=== PATIENT | male | born 1960 | race Caucasian/White ===

== ENCOUNTER 2016-11-19 18:01 | Emergency (ER) | payer BC ==
[2016-11-19 18:22] VITALS: BP 112/77
[2016-11-19] MEDS ORDERED: Ketorolac 60 MG/2 ML SDV IM ONE (18:53)
[2016-11-19] MEDS ORDERED: Cyclobenzaprine 10 MG Tab PO ONE (18:53)
--- NOTE | 2016-11-19 19:06 | EDM.PDOC ---
ED HPI LOWER BACK PAIN/INJURY - General Chief Complaint: Back Pain or Injury Stated Complaint: FELL [id number] HURT BACK Time Seen by Provider: 11/19/16 19:02 Source: Reports: Patient History Limitations: Reports: No limitations - History of Present Illness INITIAL COMMENTS - FREE TEXT/NARRATIVE: pt had acute pain in the lower back and down the rt leg. He has no tingling in his foot or lower leg. He slipped on the ice and he landed on the rt hip and lower back area. Timing/Duration: Reports: Day(s):, Other (pt is rating his pain at a 9. ) Location: Reports: radiating pain Place: home - Related Data Allergies/ADRs: Allergies Allergy/AdvReac Type Severity Reaction Status Date / Time No Known Allergies Allergy Verified 09/17/15 02:28 Home Meds: Home Meds Clopidogrel Bisulfate [Plavix] 75 mg PO DAILY 09/17/15 [History] Aspirin [Lo-Dose Aspirin EC] 81 mg PO DAILY 11/19/16 [History] Carvedilol [Coreg] 6.25 mg PO DAILY 11/19/16 [History] Levothyroxine 25 mcg PO DAILY 11/19/16 [History] atorvaSTATin [Lipitor] 40 mg PO DAILY 11/19/16 [History] Past Medical History Cardiovascular History: Reports: Arrhythmia, CAD, High cholesterol, Hypertension , [place], Prior cardiac arrest Neurological History: Reports: Concussion, Head trauma - Infectious Disease History Infectious Disease History: Reports: Chicken pox - Past Surgical History HEENT Surgical History: Reports: Cataract surgery Cardiovascular Surgical History: Reports: Coronary artery stent Social & Family History - Tobacco Use Smoking Status *Q: Former Smoker Used Tobacco, but Quit: Yes Month Tobacco Last Used: 2010 - Caffeine Use Caffeine Use: Reports: Coffee - Alcohol Use Days Per Week of Alcohol Use: 7 Number of Drinks Per Day: 2 Total Drinks Per Week: 14 - Recreational Drug Use Recreational Drug Use: No ED ROS GENERAL - Review of Systems Review Of Systems: See Below Constitutional: Reports: no symptoms HEENT: Reports: No symptoms Respiratory: Reports: no symptoms Cardiovascular: Reports: No symptoms Endocrine: Reports: no symptoms GI/Abdominal: Reports: No symptoms : Reports: no symptoms Musculoskeletal: Reports: back pain Skin: Reports: no symptoms ED EXAM,LOWER BACK PAIN/INJURY - Physical Exam Exam: See Below Text/Narrative:: pt had pin in the lower back on the rt after a fall 2 weeks ago. Exam Limited By: No limitations General Appearance: alert, anxious Ears: normal TMs Nose: normal inspection Throat/Mouth: Normal inspection Head: atraumatic Neck: normal inspection Back Exam: other (pt is tender on the rt side and when his rt leg is stretched it is more uncomfortable. He has no bruising or swelling over the area. ) Extremities: normal inspection, other ( rt straight leg raising is uncomfortable. ) Neurological: alert Course - Vital Signs Last Recorded V/S: Last Vital Signs Temp 36.7 C 11/19/16 18:28 Pulse 65 11/19/16 18:28 Resp 14 11/19/16 18:28 BP 112/77 11/19/16 18:28 Pulse Ox 96 11/19/16 18:28 - Orders/Labs/Meds Orders: Active Orders 24 hr Category Date Time Status Lumbar Spine Min 4V [CR] Stat Exams 11/19/16 19:00 Taken Pelvis 1V or 2V [CR] Stat Exams 11/19/16 19:03 Taken Meds: Medications Discontinued Medications Generic Name Dose Route Start Last Admin Trade Name Freq PRN Reason Stop Dose Admin Cyclobenzaprine HCl 10 mg 11/19/16 18:53 11/19/16 19:06 Flexeril PO 11/19/16 18:54 10 mg ONETIME ONE Administration Ketorolac Tromethamine 60 mg 11/19/16 18:53 11/19/16 19:05 Toradol IM 11/19/16 18:54 60 mg ONETIME ONE Administration - Re-Assessments/Exams Free Text/Narrative Re-Assessment/Exam: 11/19/16 20:10 lumbar spine series was obtained which showed a marked narrowing at the l4-l5 area. This disc disease may have flared with the fall. Departure - Departure Time of Disposition: 20:00 Disposition: Home, Self-Care 01 Condition: fair Clinical Impression: Degenerative disc disease, lumbar, Contusion of lower back and pelvis, initial encounter Referrals: Charanjit Corbin, [employer] [Primary Care Provider] - Forms: ED Department Discharge Care Plan Goals: moist warm packs to the rt lower back, rest, flexeril 10 mg 1/2 tab q am and qnoon and 1 tab hs. alieve twice daily, percocet 5/325 q6h prn for pain, appt with Charanjit H[place]-- pt may need an MRI for further evaluation - My Orders Last 24 Hours: My Active Orders 11/19/16 19:00 Lumbar Spine Min 4V [CR] Stat 11/19/16 19:03 Pelvis 1V or 2V [CR] Stat - Assessment/Plan Last 24 Hours: My Active Orders 11/19/16 19:00 Lumbar Spine Min 4V [CR] Stat 11/19/16 19:03 Pelvis 1V or 2V [CR] Stat
--- NOTE | 2016-11-20 08:32 | CR ---
Pelvis. Findings: No fracture or dislocation. Mild degenerative changes both hips.
--- NOTE | 2016-11-20 08:34 | CR ---
5 lumbar vertebral bodies. Advanced disc height loss L4-5. Endplate degenerative change L4-5. Anteri or osteophytosis. Mild anterolisthesis L4-5. No acute compression fracture.
== END 2016-11-19 20:10 | disposition home or self-care (01) ==
LOC: JP.ED 18:01
DX: S30.0XXA Contusion of lower back and pelvis, initial encounter (principal); M51.36 Other intervertebral disc degeneration, lumbar region; Z79.82 Long term (current) use of aspirin; Z79.899 Other long term (current) drug therapy; Z95.5 Presence of coronary angioplasty implant and graft; W00.0XXA Fall on same level due to ice and snow, initial encounter
CPT/HCPCS: 72110; 72170; 96372; 99284; A9270; J1885

== ENCOUNTER 2018-05-25 11:40 | Emergency (ER) | payer BC ==
--- NOTE | 2018-05-25 12:26 | EDM.PDOC ---
ED HPI GENERAL MEDICAL PROBLEM - General Chief Complaint: Eye Problems Stated Complaint: DIZZY, VISION Time Seen by Provider: 05/25/18 12:15 Source of Information: Reports: Patient History Limitations: Reports: No Limitations - History of Present Illness INITIAL COMMENTS - FREE TEXT/NARRATIVE: Brady is a 58 year old male, hx of OR, on Plavix, who presents to the ED today with c/o sudden onset of near syncope followed by left sided visual deficit that lasted approximately 30 minutes. Patient arrives here symptom free for the last 30 minutes. Patient denies any preceeding headache, chest pain, sob. He denies any hx of head trauma or recent illness. Patient denies any hx of this in the past. Blood pressure on arrival is 110/60. Onset: Today, Sudden - Related Data Allergies Allergy/AdvReac Type Severity Reaction Status Date / Time No Known Allergies Allergy Verified 05/25/18 12:08 Home Meds: Home Meds Clopidogrel Bisulfate [Plavix] 75 mg PO DAILY 09/17/15 [History] Aspirin [Lo-Dose Aspirin EC] 81 mg PO DAILY 11/19/16 [History] Carvedilol [Coreg] 6.25 mg PO DAILY 11/19/16 [History] Levothyroxine 25 mcg PO DAILY 11/19/16 [History] atorvaSTATin [Lipitor] 40 mg PO DAILY 11/19/16 [History] Past Medical History HEENT History: Reports: Cataract Cardiovascular History: Reports: Arrhythmia, CAD, High Cholesterol, Hypertension , [place], Prior Cardiac Arrest Neurological History: Reports: Concussion, Head Trauma - Infectious Disease History Infectious Disease History: Reports: Chicken Pox - Past Surgical History HEENT Surgical History: Reports: Cataract Surgery Cardiovascular Surgical History: Reports: Coronary Artery Stent, Percutaneous Transluminal Angioplasty Social & Family History - Tobacco Use Smoking Status *Q: Never Smoker - Caffeine Use Caffeine Use: Reports: Coffee - Recreational Drug Use Recreational Drug Use: No ED ROS GENERAL - Review of Systems Review Of Systems: ROS reveals no pertinent complaints other than HPI. ED EXAM GENERAL W FULL EYE - Physical Exam Exam: See Below Exam Limited By: No Limitations General Appearance: Alert, WD/WN, No Apparent Distress Eye Exam: Bilateral Eye: EOMI, PERRL Eyelids: Bilateral: Normal Appearance Extraocular Movements: Bilateral: Intact Pupils: Normal Accommodation Pupillary Size: Bilateral: 2 mm Pupillary Reaction: Bilateral: Brisk Ears: Normal External Exam, Normal Canal, Normal TMs Nose: Normal Inspection Throat/Mouth: Normal Inspection Head: Atraumatic Neck: Normal Inspection, Supple, Non-Tender. No: Carotid Bruit Respiratory/Chest: No Respiratory Distress, Lungs Clear, Normal Breath Sounds Cardiovascular: Normal Peripheral Pulses, Regular Rate, Rhythm, Bradycardia GI/Abdominal: Normal Bowel Sounds, Soft, Non-Tender Extremities: Normal Inspection Neurological: Alert, Oriented, CN II-XII Intact, Normal Cognition, Normal Gait, Normal Reflexes, No Motor/Sensory Deficits Psychiatric: Normal Affect, Normal Mood Skin Exam: Warm, Dry, Intact Lymphatic: No Adenopathy Course - Vital Signs Last Recorded V/S: Last Vital Signs Temp 36.3 C 05/25/18 11:57 Pulse 57 L 05/25/18 11:57 Resp 16 05/25/18 11:57 BP Pulse Ox 99 05/25/18 11:57 Brady is a 58 year old male, hx of OR with stent placement, presents to the ED today with a brief episode of near syncope and left sided visual deficits. Patient on arrival here is symptoms free. Please refer to HPI and focused exam. Patient arrives here mildly bradycardic but not hypertensive and otherwise hemodynamically stable. Patient has no neuro/focal findings on exam and NIH is 0. CT scan obtained to rule out an acute intracranial process and is negative. Blood work obtained, white count is normal, hgb stable at 12. CMP returns with mildly elevated creatinine of 1.4, GFR of 52. AST is mildly elevated at 38. CRP is elevated at 0.69. Based on patient's symptoms having resolved and having not returned during his ED stay, this may have been a TIA. I do not feel that patient acutely needs an MRI today as again he is symptom free. Patient is on Plavix which makes him lower risk for infarct. This may have been an atypical migraine presentation although patient has no hx of. He may have had a vasovagal response which I would not expect to cause any visual deficits. I feel his exam and test results are reassuring here today. I did inform patient of his test results. I want him to follow up in clinic later this week for re-evaluation. His kidney function can be re-evaluated at that time as well. He can discuss need for outpatient MRI. I did inform patient to stay well hydrated. If his symptoms return or other worsening symptoms/concerns arise, I want him to return here. Patient is agreeable to plan of care and discharged in stable condition. - Orders/Labs/Meds Orders: Active Orders 24 hr Category Date Time Status Head wo Cont [CT] Stat Exams 05/25/18 12:21 Taken Labs: Laboratory Tests 05/25/18 05/25/18 05/25/18 Range/Units 12:32 12:32 12:32 WBC 6.2 (4.5-11.0) K/uL RBC 3.84 L (4.30-5.90) M/uL Hgb 12.0 (12.0-15.0) g/dL Hct 39.2 L (40.0-54.0) % MCV 102 H (80-98) fL MCH 31 (27-31) pg MCHC 31 L (32-36) % Plt Count 249 (150-400) K/uL Neut % (Auto) 63 (36-66) % Lymph % (Auto) 28 (24-44) % [place] % (Auto) 5 (2-6) % Eos % (Auto) 4 (2-4) % Baso % (Auto) 1 (0-1) % PT 11.7 (9.5-12.0) sec INR 1.07 (0.80-1.20) Sodium 143 (140-148) mmol/L Potassium 4.7 (3.6-5.2) mmol/L Chloride 108 (100-108) mmol/L Carbon Dioxide 29 (21-32) mmol/L Anion Gap 6.2 (5.0-14.0) mmol/L BUN 24 H (7-18) mg/dL Creatinine 1.4 H (0.8-1.3) mg/dL Est Cr Clr Drug Dosing 63.90 mL/min Estimated GFR (MDRD) 52 L (>60) Glucose 88 (74-106) mg/dL Calcium 9.0 (8.5-10.1) mg/dL Total Bilirubin 1.0 D (0.2-1.0) mg/dL AST 38 H (15-37) U/L ALT 42 (12-78) U/L Alkaline Phosphatase 96 (46-116) U/L C-Reactive Protein (0.0-0.3) mg/dL Total Protein 7.5 (6.4-8.2) g/dL Albumin 3.5 (3.4-5.0) g/dL Globulin 4.0 H (2.3-3.5) g/dL Albumin/Globulin Ratio 0.9 L (1.2-2.2) 05/25/18 Range/Units 12:32 WBC (4.5-11.0) K/uL RBC (4.30-5.90) M/uL Hgb (12.0-15.0) g/dL Hct (40.0-54.0) % MCV (80-98) fL MCH (27-31) pg MCHC (32-36) % Plt Count (150-400) K/uL Neut % (Auto) (36-66) % Lymph % (Auto) (24-44) % [place] % (Auto) (2-6) % Eos % (Auto) (2-4) % Baso % (Auto) (0-1) % PT (9.5-12.0) sec INR (0.80-1.20) Sodium (140-148) mmol/L Potassium (3.6-5.2) mmol/L Chloride (100-108) mmol/L Carbon Dioxide (21-32) mmol/L Anion Gap (5.0-14.0) mmol/L BUN (7-18) mg/dL Creatinine (0.8-1.3) mg/dL Est Cr Clr Drug Dosing mL/min Estimated GFR (MDRD) (>60) Glucose (74-106) mg/dL Calcium (8.5-10.1) mg/dL Total Bilirubin (0.2-1.0) mg/dL AST (15-37) U/L ALT (12-78) U/L Alkaline Phosphatase (46-116) U/L C-Reactive Protein 0.69 H (0.0-0.3) mg/dL Total Protein (6.4-8.2) g/dL Albumin (3.4-5.0) g/dL Globulin (2.3-3.5) g/dL Albumin/Globulin Ratio (1.2-2.2) Departure - Departure Time of Disposition: 14:00 Disposition: Home, Self-Care 01 Condition: Good Clinical Impression: Visual disturbance, Near syncope - Discharge Information *PRESCRIPTION DRUG MONITORING PROGRAM REVIEWED*: No *COPY OF PRESCRIPTION DRUG MONITORING REPORT IN PATIENT SOWMYA: No Instructions: Visual Disturbances, Syncope, [id number], Transient Ischemic Attack, [id number] Referrals: Charanjit Corbin NP [Primary Care Provider] - Forms: ED Department Discharge Additional Instructions: Edward, Your CT scan looks ok. Your blood work shows a mildly elevated creatinine (kidney function) but otherwise looks ok. You may have had a TIA, I have given you paperwork with regard to what this is, but can put you at risk of having a stroke if symptoms return. I would like you to see your primary care provider later this week for follow- up. I would like your creatinine (kidney function) test rechecked at that time. You can also discuss an outpatient MRI of your head given your symptoms today. I want you to make sure you are staying well hydrated. If any of your symptoms return I want you to return to the Emergency Department. - My Orders Last 24 Hours: My Active Orders 05/25/18 12:21 Head wo Cont [CT] Stat - Assessment/Plan Last 24 Hours: My Active Orders 05/25/18 12:21 Head wo Cont [CT] Stat
[2018-05-25 13:42] VITALS: BP 118/61
== END 2018-05-25 13:56 | disposition home or self-care (01) ==
LOC: JP.ED 11:40
DX: R55 Syncope and collapse (principal); H53.9 Unspecified visual disturbance; I10 Essential (primary) hypertension; E78.00 Pure hypercholesterolemia, unspecified; I25.2 Old myocardial infarction; Z79.82 Long term (current) use of aspirin; Z79.899 Other long term (current) drug therapy
CPT/HCPCS: 36415; 70450; 80053; 85025; 85610; 86140; 99284-25

== ENCOUNTER 2019-06-18 22:11 | Emergency (ER) | payer BC ==
[2019-06-18] MEDS ORDERED: Aspirin 81 MG Tab.Chew PO ONE (22:28)
[2019-06-18] MEDS ORDERED: Nitroglycerin 0.4 MG Tab.SL SL ONE (22:28)
--- NOTE | 2019-06-18 22:32 | EDM.PDOC ---
ED HPI GENERAL MEDICAL PROBLEM - General Chief Complaint: Chest Pain Stated Complaint: CHEST PAIN, PAIN UNDER ARMS Time Seen by Provider: 06/18/19 22:15 Source of Information: Reports: Patient, Family History Limitations: Reports: No Limitations - History of Present Illness INITIAL COMMENTS - FREE TEXT/NARRATIVE: 51-year-old male with a previous known history of coronary artery disease and [place] , presents with 2-1/2 hours of chest pain and bilateral arm and shoulder discomfort. It started while watching TV. It's improved, he has just dull chest pain now on the arm pain is gone. He is asking for an evaluation. Denies any shortness of breath or diaphoresis, no nausea or vomiting. He is scheduled for his yearly cardiology evaluation in August of this year. Onset: Sudden Quality: Reports: Ache, Dull, Pressure Associated Symptoms: Reports: No Other Symptoms Anterior Chest Pain Score (Numeric/FACES): 3 - Related Data Allergies Allergy/AdvReac Type Severity Reaction Status Date / Time No Known Allergies Allergy Verified 06/18/19 22:16 Home Meds: Home Meds Clopidogrel Bisulfate [Plavix] 75 mg PO DAILY 09/17/15 [History] Aspirin [Lo-Dose Aspirin EC] 81 mg PO DAILY 11/19/16 [History] Carvedilol [Coreg] 3.125 mg PO BID 11/19/16 [History] Levothyroxine 25 mcg PO DAILY 11/19/16 [History] atorvaSTATin [Lipitor] 40 mg PO DAILY 11/19/16 [History] Folic Acid 1 mg PO DAILY 06/18/19 [History] Lisinopril 1 tab PO DAILY 06/18/19 [History] Past Medical History HEENT History: Reports: Cataract Cardiovascular History: Reports: Arrhythmia, CAD, High Cholesterol, Hypertension , [place], Prior Cardiac Arrest Neurological History: Reports: Concussion, Head Trauma - Infectious Disease History Infectious Disease History: Reports: Chicken Pox - Past Surgical History HEENT Surgical History: Reports: Cataract Surgery Cardiovascular Surgical History: Reports: Coronary Artery Stent, Percutaneous Transluminal Angioplasty Social & Family History - Caffeine Use Caffeine Use: Reports: Coffee ED ROS GENERAL - Review of Systems Review Of Systems: See Below Constitutional: Denies: Fever, Chills HEENT: Reports: No Symptoms Respiratory: Denies: Shortness of Breath, Cough Cardiovascular: Reports: Chest Pain. Denies: Lightheadedness, Palpitations GI/Abdominal: Denies: Abdominal Pain, Nausea, Vomiting : Reports: No Symptoms Skin: Reports: No Symptoms Neurological: Reports: No Symptoms. Denies: Headache ED EXAM, GENERAL - Physical Exam Exam: See Below Exam Limited By: No Limitations General Appearance: Alert, No Apparent Distress Head: Atraumatic Respiratory/Chest: No Respiratory Distress, Lungs Clear Cardiovascular: Regular Rate, Rhythm GI/Abdominal: Soft, Non-Tender Extremities: Normal Inspection. No: Pedal Edema Neurological: Alert, Oriented EKG INTERPRETATION Rhythm: NSR Comparison: Change From Previous EKG (Slight ST elevation in the anterior leads is consistent with 3 year-old EKG however slightly more pronounced) Course - Vital Signs Last Recorded V/S: Last Vital Signs Temp 95.9 F 06/18/19 23:33 Pulse 54 L 06/18/19 23:33 Resp 14 06/18/19 23:33 BP 114/80 06/18/19 23:33 Pulse Ox 97 06/18/19 23:33 - Orders/Labs/Meds Orders: Active Orders 24 hr Category Date Time Status EKG Documentation Completion [RC] ASDIRECTED Care 06/18/19 22:29 Active EKG 12 Lead [EK] Routine Ther 06/18/19 22:28 Ordered Labs: Laboratory Tests 06/18/19 06/18/19 Range/Units 22:38 22:38 WBC 6.2 (4.5-11.0) K/uL RBC 3.46 L (4.30-5.90) M/uL Hgb 11.5 L (12.0-15.0) g/dL Hct 37.2 L (40.0-54.0) % MCV 108 H (80-98) fL MCH 33 H (27-31) pg MCHC 31 L (32-36) % Plt Count 186 (150-400) K/uL Neut % (Auto) 50 (36-66) % Lymph % (Auto) 38 (24-44) % [place] % (Auto) 7 H (2-6) % Eos % (Auto) 4 (2-4) % Baso % (Auto) 1 (0-1) % Sodium 146 (140-148) mmol/L Potassium 3.8 (3.6-5.2) mmol/L Chloride 109 H (100-108) mmol/L Carbon Dioxide 27 (21-32) mmol/L Anion Gap 13.8 (5.0-14.0) mmol/L BUN 26 H (7-18) mg/dL Creatinine 1.4 H (0.8-1.3) mg/dL Est Cr Clr Drug Dosing 63.13 mL/min Estimated GFR (MDRD) 52 L (>60) Glucose 99 (74-106) mg/dL Calcium 8.9 (8.5-10.1) mg/dL Total Bilirubin 0.4 D (0.2-1.0) mg/dL AST 32 (15-37) U/L ALT 35 (12-78) U/L Alkaline Phosphatase 70 (46-116) U/L Troponin I 0.603 H* (0.000-0.056) ng/mL Total Protein 6.6 (6.4-8.2) g/dL Albumin 3.4 (3.4-5.0) g/dL Globulin 3.2 (2.3-3.5) g/dL Albumin/Globulin Ratio 1.1 L (1.2-2.2) Meds: Medications Discontinued Medications Generic Name Dose Route Start Last Admin Trade Name Freq PRN Reason Stop Dose Admin Aspirin 324 mg 06/18/19 22:28 06/18/19 22:35 Aspirin PO 06/18/19 22:29 324 mg ONETIME ONE Administration Heparin Sodium (Porcine) 5,000 units 06/18/19 23:11 06/18/19 23:21 Heparin Sodium IVPUSH 06/18/19 23:12 5,000 units ONETIME ONE Administration Heparin Sodium/Dextrose 25,000 units in 500 mls @ 20 mls/hr 06/18/19 23:15 23:27 Heparin 25,000 Units In D5w 500 Ml IV 1,000 units/hr TITRATE ASHLEY 20 mls/hr Administration Protocol 1,000 UNITS/HR Nitroglycerin 0.4 mg 06/18/19 22:28 06/18/19 22:37 Nitrostat SL 06/18/19 22:29 0.4 mg ONETIME ONE Administration - Re-Assessments/Exams Free Text/Narrative Re-Assessment/Exam: 06/18/19 22:32 EKG was done on arrival which showed mild ST elevation in the anterior leads V1 through V3, however comparing an EKG 2016 shows similar findings although not as pronounced. He was given 324 mg of chewable aspirin, one sublingual nitroglycerin 0.4 mg and CBC CMP and troponin were obtained. 06/18/19 23:21 Troponin returned elevated at 0.60. Pain had not returned after resolving after the sublingual nitroglycerin. An IV was started, the patient was given 5000 units of heparin bolus and started on a heparin drip. Dr. Reagan, [facility] accepted the patient for transfer. Departure - Departure Time of Disposition: 23:53 Disposition: DC/Tfer to Other Clinical Impression: STEMI (ST elevation myocardial infarction) Qualifiers: Involved coronary artery: unspecified coronary artery Qualified Code(s): I21.3 - ST elevation (STEMI) myocardial infarction of unspecified site - Discharge Information Referrals: Charanjit Corbin NP [Primary Care Provider] - Forms: ED Department Discharge Care Plan Goals: Patient will be transferred to [facility] in [place] for further evaluation by cardiology, likely coronary angiography. - My Orders Last 24 Hours: My Active Orders 06/18/19 22:28 EKG 12 Lead [EK] Routine 06/18/19 22:29 EKG Documentation Completion [RC] ASDIRECTED - Assessment/Plan Last 24 Hours: My Active Orders 06/18/19 22:28 EKG 12 Lead [EK] Routine 06/18/19 22:29 EKG Documentation Completion [RC] ASDIRECTED
[2019-06-18 22:49] VITALS: PULSE 54
[2019-06-18] MEDS ORDERED: Heparin Sodium 5,000 Units/ML Vial IVPUSH ONE (23:11)
[2019-06-18] MEDS ORDERED: Heparin Sodium/D5W 25,000 UNITS/500 ML BAG IV SCH (23:15)
[2019-06-18 23:34] VITALS: BP 114/80
== END 2019-06-18 23:52 | disposition other institution (70) ==
LOC: JP.ED 22:11
DX: I21.3 ST elevation (STEMI) myocardial infarction of unspecified site (principal); I25.10 Atherosclerotic heart disease of native coronary artery without angina pectoris; E78.00 Pure hypercholesterolemia, unspecified; I10 Essential (primary) hypertension; H26.9 Unspecified cataract; Z79.82 Long term (current) use of aspirin; Z79.02 Long term (current) use of antithrombotics/antiplatelets; Z79.899 Other long term (current) drug therapy; Z95.5 Presence of coronary angioplasty implant and graft
CPT/HCPCS: 36415; 80053; 84484; 85025; 93005; 96365; 96375; 99285; A9270; J1644

== ENCOUNTER 2020-03-10 07:37 | Emergency (ER) | payer BC ==
[2020-03-10] MEDS ORDERED: Morphine 4 MG/ML Syringe IVPUSH ONE (07:51)
[2020-03-10] MEDS ORDERED: Nitroglycerin 0.4 MG Tab.SL SL PRN (07:51)
[2020-03-10] MEDS: Metoprolol Tartrate 5 MG/5 ML SDV IVPUSH PRN ×2 (07:56→08:21)
[2020-03-10] MEDS ORDERED: Metoprolol Tartrate 5 MG/5 ML SDV IVPUSH ONE (08:18)
--- NOTE | 2020-03-10 08:18 | EDM.PDOC ---
ED HPI GENERAL MEDICAL PROBLEM - General Chief Complaint: Cardiovascular Problem Stated Complaint: [facility] Time Seen by Provider: 03/10/20 07:45 Source of Information: Reports: Patient, EMS History Limitations: Reports: No Limitations - History of Present Illness INITIAL COMMENTS - FREE TEXT/NARRATIVE: This is a 59-year-old male with history of prior STEMI, stent placement, and ischemic cardiomyopathy who presents via EMS from home with chest pain. He reports that his pain started approximately 4 hours prior to arrival in the ED at 3 AM. It woke him from sleep. He tried several of his home nitroglycerin tabs, these offered minimal relief from the pain. The pain is currently 6 out of 10, substernal, described as a pressure. He does not endorse any associated dyspnea. He is not sure if the pain feels similar to his prior [place]. He was found by EMS to be tachycardic in the 160s and 170s, this did improve with vagal maneuvers transiently. Upon arrival in the emergency room he is found to be in rapid A. fib, he does not believe that he has any history of this. He has been taking his aspirin and Plavix as well as his Coreg. He does clinically seem to be intoxicated, and I am not entirely certain of the accuracy of his history, although he does deny recent drug or alcohol use. Chest Pain Score (Numeric/FACES): 3 - Related Data Allergies Allergy/AdvReac Type Severity Reaction Status Date / Time No Known Allergies Allergy Verified 03/10/20 07:47 Home Meds: Home Meds Clopidogrel Bisulfate [Plavix] 75 mg PO DAILY 09/17/15 [History] Aspirin [Lo-Dose Aspirin EC] 81 mg PO DAILY 11/19/16 [History] Levothyroxine 25 mcg PO DAILY 11/19/16 [History] atorvaSTATin [Lipitor] 40 mg PO DAILY 11/19/16 [History] carvediloL [Coreg] 3.125 mg PO BID 11/19/16 [History] Folic Acid 1 mg PO DAILY 06/18/19 [History] Lisinopril 1 tab PO DAILY 06/18/19 [History] Cyanocobalamin (Vitamin B-12) [Vitamin B-12] 10,000 mcg PO DAILY 03/10/20 [History] Nitroglycerin 0.4 mg SL ASDIRECTED PRN 03/10/20 [History] Past Medical History HEENT History: Reports: Cataract Cardiovascular History: Reports: Afib, Arrhythmia, CAD, High Cholesterol, Hypertension, [place], Prior Cardiac Arrest Musculoskeletal History: Reports: Arthritis Neurological History: Reports: Concussion, Head Trauma Endocrine/Metabolic History: Reports: Hypothyroidism - Infectious Disease History Infectious Disease History: Reports: Chicken Pox - Past Surgical History HEENT Surgical History: Reports: Cataract Surgery Cardiovascular Surgical History: Reports: Coronary Artery Stent, Percutaneous Transluminal Angioplasty Social & Family History - Tobacco Use Tobacco Use Comment: current some day smoker - Caffeine Use Caffeine Use: Reports: Coffee - Recreational Drug Use Recreational Drug Use: No ED ROS GENERAL - Review of Systems Review Of Systems: See Below Constitutional: Reports: No Symptoms HEENT: Reports: No Symptoms Respiratory: Reports: No Symptoms Cardiovascular: Reports: Chest Pain Endocrine: Reports: No Symptoms GI/Abdominal: Reports: No Symptoms : Reports: No Symptoms Musculoskeletal: Reports: No Symptoms Skin: Reports: No Symptoms Neurological: Reports: No Symptoms Psychiatric: Reports: No Symptoms Hematologic/Lymphatic: Reports: No Symptoms Immunologic: Reports: No Symptoms ED EXAM, GENERAL - Physical Exam Exam: See Below Exam Limited By: No Limitations General Appearance: Alert, Mild Distress Nose: Normal Inspection Throat/Mouth: Normal Inspection Head: Atraumatic, Normocephalic Neck: Normal Inspection Respiratory/Chest: Lungs Clear Cardiovascular: No Murmur, Tachycardia, Irregularly Irregular GI/Abdominal: Soft, Non-Tender Back Exam: Normal Inspection Extremities: Normal Inspection, No Pedal Edema Neurological: Alert, Oriented Psychiatric: Normal Affect, Normal Mood Skin Exam: Warm, Dry EKG INTERPRETATION Rhythm: A-Fib ST-T: Other (unchanged from prior) Comparison: No Change EKG Interpretation Comments: Rapid a-fib. Some inferior ST segment changes but similar to 2019. Stable on repeat tracings. Course - Vital Signs Last Recorded V/S: Last Vital Signs Temp 36.8 C 03/10/20 07:39 Pulse 113 H 03/10/20 08:51 Resp 22 H 03/10/20 08:51 BP 104/72 03/10/20 08:51 Pulse Ox 95 03/10/20 08:51 - Orders/Labs/Meds Orders: Active Orders 24 hr Category Date Time Status CXR [Chest 1V Frontal] [CR] Stat Exams 03/10/20 07:50 Taken Heparin Sodium/D5W [Heparin 25,000 Units in D5W 500 ML] Med 03/10/20 09:00 Active 25,000 units in 500 ml IV TITRATE Metoprolol Tartrate [Lopressor] Med 03/10/20 07:52 Active 5 mg IVPUSH Q4H PRN Nitroglycerin [Nitrostat] Med 03/10/20 07:51 Active 0.4 mg SL Q5M PRN Medication Orders Heparin Sodium/Dextrose (Heparin 25,000 Units In D5w 500 Ml) 25,000 units in 500 mls @ 20.357 mls/hr IV TITRATE ASHLEY; Protocol Metoprolol Tartrate (Lopressor) 5 mg IVPUSH Q4H PRN PRN Reason: Tachycardia Last Admin: 03/10/20 08:21 Dose: 2.5 mg Documented by: Admin: 03/10/20 07:56 Dose: 5 mg Documented by: PREILOR Nitroglycerin (Nitrostat) 0.4 mg SL Q5M PRN PRN Reason: Chest Pain Last Admin: 03/10/20 07:58 Dose: 0.4 mg Documented by: PREILOR Labs: Laboratory Tests 03/10/20 03/10/20 03/10/20 Range/Units 08:09 08:09 08:09 WBC 11.1 H (4.5-11.0) K/uL RBC 3.96 L (4.30-5.90) M/uL Hgb 12.8 (12.0-15.0) g/dL Hct 41.6 (40.0-54.0) % MCV 105 H (80-98) fL MCH 32 H (27-31) pg MCHC 31 L (32-36) % Plt Count 292 (150-400) K/uL Sodium 145 (140-148) mmol/L Potassium 4.6 (3.6-5.2) mmol/L Chloride 109 H (100-108) mmol/L Carbon Dioxide 23 (21-32) mmol/L Anion Gap 17.6 H (5.0-14.0) mmol/L BUN 25 H (7-18) mg/dL Creatinine 1.5 H (0.8-1.3) mg/dL Est Cr Clr Drug Dosing 60.66 mL/min Estimated GFR (MDRD) 48 L (>60) Glucose 95 (74-106) mg/dL Calcium 8.7 (8.5-10.1) mg/dL Magnesium 2.3 (1.8-2.4) mg/dL Total Bilirubin 1.5 H D (0.2-1.0) mg/dL AST 85 H D (15-37) U/L ALT 155 H (12-78) U/L Alkaline Phosphatase 170 H D (46-116) U/L Troponin I 0.587 H* (0.000-0.056) ng/mL Total Protein 7.0 (6.4-8.2) g/dL Albumin 2.8 L (3.4-5.0) g/dL Globulin 4.2 H (2.3-3.5) g/dL Albumin/Globulin Ratio 0.7 L (1.2-2.2) Urine Opiates Screen (NEGATIVE) Ur Oxycodone Screen (NEGATIVE) Urine Methadone Screen (NEGATIVE) Ur Propoxyphene Screen (NEGATIVE) Ur Barbiturates Screen (NEGATIVE) Ur Tricyclics Screen (NEGATIVE) Ur Phencyclidine Scrn (NEGATIVE) Ur Amphetamine Screen (NEGATIVE) U Methamphetamines Scrn (NEGATIVE) Urine MDMA Screen (NEGATIVE) U Benzodiazepines Scrn (NEGATIVE) U Cocaine Metab Screen (NEGATIVE) U Marijuana (THC) Screen (NEGATIVE) Ethyl Alcohol mg/dL 03/10/20 03/10/20 Range/Units 08:09 08:31 WBC (4.5-11.0) K/uL RBC (4.30-5.90) M/uL Hgb (12.0-15.0) g/dL Hct (40.0-54.0) % MCV (80-98) fL MCH (27-31) pg MCHC (32-36) % Plt Count (150-400) K/uL Sodium (140-148) mmol/L Potassium (3.6-5.2) mmol/L Chloride (100-108) mmol/L Carbon Dioxide (21-32) mmol/L Anion Gap (5.0-14.0) mmol/L BUN (7-18) mg/dL Creatinine (0.8-1.3) mg/dL Est Cr Clr Drug Dosing mL/min Estimated GFR (MDRD) (>60) Glucose (74-106) mg/dL Calcium (8.5-10.1) mg/dL Magnesium (1.8-2.4) mg/dL Total Bilirubin (0.2-1.0) mg/dL AST (15-37) U/L ALT (12-78) U/L Alkaline Phosphatase (46-116) U/L Troponin I (0.000-0.056) ng/mL Total Protein (6.4-8.2) g/dL Albumin (3.4-5.0) g/dL Globulin (2.3-3.5) g/dL Albumin/Globulin Ratio (1.2-2.2) Urine Opiates Screen Positive H (NEGATIVE) Ur Oxycodone Screen Negative (NEGATIVE) Urine Methadone Screen Negative (NEGATIVE) Ur Propoxyphene Screen Negative (NEGATIVE) Ur Barbiturates Screen Negative (NEGATIVE) Ur Tricyclics Screen Negative (NEGATIVE) Ur Phencyclidine Scrn Negative (NEGATIVE) Ur Amphetamine Screen Negative (NEGATIVE) U Methamphetamines Scrn Negative (NEGATIVE) Urine MDMA Screen Negative (NEGATIVE) U Benzodiazepines Scrn Negative (NEGATIVE) U Cocaine Metab Screen Negative (NEGATIVE) U Marijuana (THC) Screen Negative (NEGATIVE) Ethyl Alcohol < 3 mg/dL Meds: Medications Generic Name Dose Route Start Last Admin Trade Name Freq PRN Reason Stop Dose Admin Heparin Sodium/Dextrose 25,000 units in 500 mls @ 20.357 mls/hr 03/10/20 09:00 Heparin 25,000 Units In D5w 500 Ml IV TITRATE ASHLEY Protocol 12 UNITS/KG/HR Metoprolol Tartrate 5 mg 03/10/20 07:52 03/10/20 08:21 Lopressor IVPUSH 2.5 mg Q4H PRN Administration Tachycardia Nitroglycerin 0.4 mg 03/10/20 07:51 03/10/20 07:58 Nitrostat SL 0.4 mg Q5M PRN Administration Chest Pain Discontinued Medications Generic Name Dose Route Start Last Admin Trade Name Freq PRN Reason Stop Dose Admin Metoprolol Tartrate 5 mg 03/10/20 08:18 Lopressor IVPUSH 03/10/20 08:19 ONETIME ONE Morphine Sulfate 4 mg 03/10/20 07:51 03/10/20 08:04 Morphine IVPUSH 03/10/20 07:52 4 mg ONETIME ONE Administration - Re-Assessments/Exams Free Text/Narrative Re-Assessment/Exam: This is a 59-year-old with history of prior STEMI, ischemic cardiomyopathy who presents with concerns of chest pain and found to be in rapid atrial fibrillation. Upon arrival in the ED he had 6/10 chest pain. He was in A. fib with a ventricular rate of 160 and 170. He did look somewhat uncomfortable. He received an aspirin prehospital by EMS. After reviewing a stat EKG upon arrival, we initiated therapy with 5 mg of Lopressor to slow down his rate. This did bring him down into the 120s. Despite rate control he continued to have ongoing chest pain. A dose of nitroglycerin was given without any significant relief. He then received a 4 mg dose of morphine which is brought his chest pain from 6 to a 2. We are obtaining labs including troponin testing. He will also receive an x- ray. I suspect at a minimum he will have rate related troponin elevation, but with his history we will have to assume it is ACS. We are going to give him another small dose of metoprolol to get his rate closer to 100. 03/10/20 08:24 Free Text/Narrative Re-Assessment/Exam: Labs remarkable for elevated troponin at 0.587. Chest x-ray without acute process. Chest pain remains at 2/10. His heart rate now is around 100 after a second dose of metoprolol, blood pressure is decreased but stable around 100 systolic. I am starting him on a heparin infusion for NSTEMI and A. fib. He is being transferred to [facility] for further cares. 03/10/20 09:12 Departure - Departure Time of Disposition: 09:15 Disposition: DC/Tfer to Acute Hospital 02 Reason for Transfer *Q: Other (Cardiology consultation, possible PCI) Clinical Impression: NSTEMI (non-ST elevated myocardial infarction), Atrial fibrillation with RVR, Ischemic cardiomyopathy Referrals: PCP,None [Primary Care Provider] - Forms: ED Department Discharge Critical Care Note - Critical Care Note Total Time (mins): 35 Comments: Critical care time was spent assessing a tachydysrhythmia, assessing for cardiac ischemia, using intravenous agents to control rapid ventricular rate, interpreting serial EKGs, discussing the case with consultants, and initiating anticoagulation. Sepsis Event Note (ED) - Evaluation Sepsis Screening Result: No Definite Risk - Focused Exam Vital Signs: Vital Signs Temp Pulse Pulse Resp BP BP Pulse Ox 03/10/20 08:51 113 H 22 H 104/72 95 03/10/20 08:36 109 H 22 H 99/78 95 03/10/20 08:21 119 H 102 H 22 H 103/78 91/71 93 L 03/10/20 08:07 99 26 H 103/78 93 L 03/10/20 07:58 116/84 03/10/20 07:56 138 H 113/80 03/10/20 07:39 36.8 C 140 H 19 114/89 94 L - My Orders Last 24 Hours: My Active Orders 03/10/20 07:50 CXR [Chest 1V Frontal] [CR] Stat 03/10/20 07:51 Nitroglycerin [Nitrostat] 0.4 mg SL Q5M PRN 03/10/20 07:52 Metoprolol Tartrate [Lopressor] 5 mg IVPUSH Q4H PRN 03/10/20 09:00 Heparin Sodium/D5W [Heparin 25,000 Units in D5W 500 ML] 25,000 units in 500 ml IV TITRATE - Assessment/Plan Last 24 Hours: My Active Orders 03/10/20 07:50 CXR [Chest 1V Frontal] [CR] Stat 03/10/20 07:51 Nitroglycerin [Nitrostat] 0.4 mg SL Q5M PRN 03/10/20 07:52 Metoprolol Tartrate [Lopressor] 5 mg IVPUSH Q4H PRN 03/10/20 09:00 Heparin Sodium/D5W [Heparin 25,000 Units in D5W 500 ML] 25,000 units in 500 ml IV TITRATE
[2020-03-10] MEDS ORDERED: Heparin Sodium/D5W 25,000 UNITS/500 ML BAG IV SCH (09:00)
[2020-03-10 09:05] VITALS: BP 104/72; PULSE 113
--- NOTE | 2020-03-10 09:32 | CR ---
CHEST: Portable 03/10/2020 at 8:18 AM CLINICAL HISTORY:Chest pain COMPARISON:2016 FINDINGS: Heart is sent enlarged. Pulmonary vascular is normal. There is patchy density in the left lower lobe suggesting pneumonic infiltrate. There may be a small left effusion. There are atherosclerotic changes in the aorta. Impression: Left lower lobe pneumonic infiltrate Cardiomegaly.
== END 2020-03-10 09:51 ==
LOC: JP.ED 07:37
DX: I21.4 Non-ST elevation (NSTEMI) myocardial infarction (principal); I48.91 Unspecified atrial fibrillation; I25.5 Ischemic cardiomyopathy; I10 Essential (primary) hypertension; E78.00 Pure hypercholesterolemia, unspecified; I25.10 Atherosclerotic heart disease of native coronary artery without angina pectoris; I25.2 Old myocardial infarction; M19.90 Unspecified osteoarthritis, unspecified site; E03.9 Hypothyroidism, unspecified; F17.200 Nicotine dependence, unspecified, uncomplicated; Z95.5 Presence of coronary angioplasty implant and graft; Z79.82 Long term (current) use of aspirin; Z79.02 Long term (current) use of antithrombotics/antiplatelets; Z79.899 Other long term (current) drug therapy
CPT/HCPCS: 36415; 71045; 80053; 80305; 80307; 83735; 84484; 85027; 93005; 96374; 96375; 96376; 99291; A9270; J1644; J2270; J3490; 93010

== ENCOUNTER 2021-12-29 18:14 | Inpatient (IN) | payer BC ==
[2021-12-29] MEDS ORDERED: Lactated Ringers 1,000 ML IV SCH ×2 (18:45→19:45)
[2021-12-29] MEDS ORDERED: Ondansetron 4 MG/2 ML SDV IVPUSH ONE (18:58)
[2021-12-29] MEDS ORDERED: Cefepime 2 GM in Sodium Chloride 0.9% 50 ML IV ONE (19:38)
[2021-12-29] MEDS ORDERED: Sodium Chloride 0.9% 10 ML Syringe FLUSH PRN (19:39)
[2021-12-29 20:22] LABS: CORONAVIRUS COVID-19 NAA NEGATIVE (NEGATIVE)
[2021-12-29] MEDS ORDERED: Promethazine 6.25 MG in Sodium Chloride 0.9% 50 ML IV PRN (21:13)
[2021-12-29] MEDS ORDERED: Acetaminophen 325 MG Tab PO PRN (21:13)
[2021-12-29] MEDS ORDERED: oxyCODONE 5 MG Tab PO PRN (21:13)
[2021-12-29] MEDS ORDERED: Lactated Ringers 500 ML IV SCH (21:30)
[2021-12-29] MEDS ORDERED: Pantoprazole 40 MG Vial IVPUSH SCH (21:30)
[2021-12-29] MEDS ORDERED: Furosemide 20 MG/2 ML VIAL IVPUSH PRN (21:57)
[2021-12-29] MEDS: Lactated Ringers 1,000 ML IV SCH (22:26)
[2021-12-29] MEDS: metroNIDAZOLE/Normal Saline 500 MG in Premix Bag 1 BAG IV SCH (22:32)
[2021-12-29] MEDS: Promethazine 25 MG Tab PO PRN (22:40)
[2021-12-30] MEDS: metroNIDAZOLE/Normal Saline 500 MG in Premix Bag 1 BAG IV SCH ×3 (05:26→21:04)
[2021-12-30] MEDS: Levothyroxine 25 MCG Tab PO SCH (07:58)
[2021-12-30] MEDS: Lactated Ringers 1,000 ML IV SCH (08:00)
[2021-12-30] MEDS ORDERED: Cefepime 2 GM in Sodium Chloride 0.9% 50 ML IV SCH (08:00)
[2021-12-30] MEDS ORDERED: Levothyroxine 25 MCG Tab PO SCH (09:00)
[2021-12-30] MEDS: Metoprolol Succinate 25 MG Tab.ER PO SCH (09:12)
[2021-12-30] MEDS: atorvaSTATin 20 MG Tab PO SCH (09:12)
[2021-12-30] MEDS: Aspirin 81 MG Tab.EC PO SCH (09:12)
[2021-12-30] MEDS: Apixaban 5 MG Tab PO SCH ×2 (09:14→21:03)
[2021-12-30] MEDS: Cyanocobalamin (Vitamin B12) 1,000 MCG Tab PO SCH (09:14)
[2021-12-30] MEDS: Folic Acid 1 MG Tab PO SCH (09:14)
[2021-12-30] MEDS: Cefepime 2 GM in Sodium Chloride 0.9% 50 ML IV SCH ×2 (09:33→22:46)
[2021-12-30] MEDS: Digoxin 125 MCG Tab PO SCH ×2 (10:29→13:28)
[2021-12-30] MEDS ORDERED: Lactated Ringers 1,000 ML IV SCH (10:30)
[2021-12-30] MEDS ORDERED: Pantoprazole 40 MG Vial IVPUSH SCH (21:00)
[2021-12-31] MEDS: metroNIDAZOLE/Normal Saline 500 MG in Premix Bag 1 BAG IV SCH ×3 (05:08→22:08)
[2021-12-31] MEDS: Levothyroxine 25 MCG Tab PO SCH (07:56)
[2021-12-31] MEDS: Promethazine 25 MG Tab PO PRN (08:27)
[2021-12-31] MEDS: Aspirin 81 MG Tab.EC PO SCH (09:38)
[2021-12-31] MEDS: Apixaban 5 MG Tab PO SCH ×2 (09:38→20:58)
[2021-12-31] MEDS: Folic Acid 1 MG Tab PO SCH (09:38)
[2021-12-31] MEDS: atorvaSTATin 20 MG Tab PO SCH (09:39)
[2021-12-31] MEDS: Metoprolol Succinate 25 MG Tab.ER PO SCH ×2 (09:39→11:18)
[2021-12-31] MEDS: Cyanocobalamin (Vitamin B12) 1,000 MCG Tab PO SCH (09:43)
[2021-12-31] MEDS: Cefepime 2 GM in Sodium Chloride 0.9% 50 ML IV SCH (10:16)
[2021-12-31] MEDS ORDERED: methylPREDNISolone Sodium Succinate 125 MG/2 ML SDV IVPUSH ONE (11:15)
[2021-12-31] MEDS: Digoxin 125 MCG Tab PO SCH (13:39)
[2021-12-31] MEDS: Ciprofloxacin in D5W 400 MG in Premix Bag 1 BAG IV SCH ×2 (20:58)
[2022-01-01] MEDS: metroNIDAZOLE/Normal Saline 500 MG in Premix Bag 1 BAG IV SCH ×3 (05:17→22:01)
[2022-01-01] MEDS: Levothyroxine 25 MCG Tab PO SCH (07:33)
[2022-01-01] MEDS: Ciprofloxacin in D5W 400 MG in Premix Bag 1 BAG IV SCH ×4 (08:12→20:00)
[2022-01-01] MEDS: atorvaSTATin 20 MG Tab PO SCH (08:13)
[2022-01-01] MEDS: Cyanocobalamin (Vitamin B12) 1,000 MCG Tab PO SCH (08:13)
[2022-01-01] MEDS: Folic Acid 1 MG Tab PO SCH (08:13)
[2022-01-01] MEDS: Aspirin 81 MG Tab.EC PO SCH (08:14)
[2022-01-01] MEDS: Apixaban 5 MG Tab PO SCH ×2 (08:14→20:00)
[2022-01-01] MEDS: Metoprolol Succinate 25 MG Tab.ER PO SCH (09:53)
[2022-01-01] MEDS: Digoxin 125 MCG Tab PO SCH (12:51)
[2022-01-02] MEDS: metroNIDAZOLE/Normal Saline 500 MG in Premix Bag 1 BAG IV SCH ×2 (05:12→13:06)
[2022-01-02 07:34] VITALS: PULSE 60
[2022-01-02] MEDS: Levothyroxine 25 MCG Tab PO SCH (07:38)
[2022-01-02] MEDS: Ciprofloxacin in D5W 400 MG in Premix Bag 1 BAG IV SCH ×2 (08:09)
[2022-01-02] MEDS: Aspirin 81 MG Tab.EC PO SCH (08:10)
[2022-01-02] MEDS: Apixaban 5 MG Tab PO SCH (08:10)
[2022-01-02] MEDS: Metoprolol Succinate 25 MG Tab.ER PO SCH (08:10)
[2022-01-02] MEDS: Folic Acid 1 MG Tab PO SCH (08:10)
[2022-01-02] MEDS: atorvaSTATin 20 MG Tab PO SCH (08:10)
[2022-01-02] MEDS: Cyanocobalamin (Vitamin B12) 1,000 MCG Tab PO SCH (08:11)
[2022-01-02 11:06] VITALS: BP 95/61
[2022-01-02] MEDS: Digoxin 125 MCG Tab PO SCH (12:09)
== END 2022-01-02 15:05 | disposition home or self-care (01) | DRG 720 ==
LOC: JP.ED 18:14 → JP.ICU 20:58
PROVIDERS: ADMIT Internal Medicine; ATTEND Hospitalist
DX: A41.9 Sepsis, unspecified organism (principal); N17.9 Acute kidney failure, unspecified; K52.9 Noninfective gastroenteritis and colitis, unspecified; E86.0 Dehydration; I42.0 Dilated cardiomyopathy; I48.91 Unspecified atrial fibrillation; I25.10 Atherosclerotic heart disease of native coronary artery without angina pectoris; E78.00 Pure hypercholesterolemia, unspecified; I10 Essential (primary) hypertension; M19.90 Unspecified osteoarthritis, unspecified site; E03.9 Hypothyroidism, unspecified; Z98.49 Cataract extraction status, unspecified eye; Z95.5 Presence of coronary angioplasty implant and graft; Z79.82 Long term (current) use of aspirin; Z79.890 Hormone replacement therapy; Z79.01 Long term (current) use of anticoagulants; Z79.899 Other long term (current) drug therapy; I25.2 Old myocardial infarction; Z86.74 Personal history of sudden cardiac arrest; I25.5 Ischemic cardiomyopathy; Z20.822 Contact with and (suspected) exposure to COVID-19; R65.21 Severe sepsis with septic shock
CPT/HCPCS: 0241U; 36415; 71045; 71045-26; 74176; 80048; 80053; 81001; 83605; 84145; 85025; 85027; 86140; 87040; 96365; 96375; 99284; 99285-25; A9270-GY; C9113; J0692; J0744; J2405; J2930; J3490; J7120

== ENCOUNTER 2022-01-22 15:24 | Inpatient (IN) | payer BC ==
[2022-01-22] MEDS ORDERED: Lactated Ringers 1,000 ML IV SCH (16:45)
[2022-01-22 17:44] LABS: CORONAVIRUS COVID-19 NAA NEGATIVE (NEGATIVE)
[2022-01-22] MEDS ORDERED: Lactated Ringers 1,000 ML IV ONE (18:20)
[2022-01-22] MEDS ORDERED: Ondansetron 4 MG/2 ML SDV IV PRN (20:09)
[2022-01-22] MEDS ORDERED: Ondansetron 4 MG Tab.DIS PO PRN (20:09)
[2022-01-22] MEDS ORDERED: Pantoprazole 40 MG Vial IV SCH (20:09)
[2022-01-22] MEDS ORDERED: LORazepam 2 MG/ML SDV IVPUSH PRN (20:09)
[2022-01-22] MEDS ORDERED: oxyCODONE 5 MG Tab PO PRN (20:09)
[2022-01-22] MEDS: Vancomycin 125 MG Cap PO SCH ×2 (20:39→22:47)
[2022-01-22] MEDS: Lactobacillus Rhamnosus GG (Probiotic) Cap PO SCH (20:41)
[2022-01-22] MEDS: Acetaminophen 325 MG Tab PO PRN (20:44)
[2022-01-22] MEDS: Sodium Chloride 0.9% 1,000 ML IV SCH (20:48)
[2022-01-22] MEDS: Apixaban 5 MG Tab PO SCH (20:51)
[2022-01-22] MEDS ORDERED: Ketorolac 30 MG/ML SDV IVPUSH ONE (21:27)
[2022-01-23] MEDS ORDERED: Sodium Chloride 0.9% 1,000 ML IV SCH (04:30)
[2022-01-23] MEDS: Vancomycin 125 MG Cap PO SCH ×4 (05:56→22:04)
[2022-01-23] MEDS: Sodium Chloride 0.9% 1,000 ML IV SCH ×2 (06:24→20:25)
[2022-01-23] MEDS: Aspirin 81 MG Tab.EC PO SCH (08:40)
[2022-01-23] MEDS: atorvaSTATin 20 MG Tab PO SCH (08:40)
[2022-01-23] MEDS: Lactobacillus Rhamnosus GG (Probiotic) Cap PO SCH ×2 (08:40→22:04)
[2022-01-23] MEDS: Empagliflozin 10 MG Tab PO SCH (08:40)
[2022-01-23] MEDS: Levothyroxine 25 MCG Tab PO SCH (08:41)
[2022-01-23] MEDS: Apixaban 5 MG Tab PO SCH ×2 (08:41→22:04)
[2022-01-23] MEDS: Cyanocobalamin (Vitamin B12) 1,000 MCG Tab PO SCH ×2 (08:42)
[2022-01-23] MEDS: Vitamin B6-pyridOXINE 50 MG Tab PO SCH (08:42)
[2022-01-23] MEDS: Folic Acid 1 MG Tab PO SCH ×2 (08:42)
[2022-01-23] MEDS: Thiamine 100 MG Tab PO SCH (08:42)
[2022-01-23] MEDS ORDERED: Cyanocobalamin/Folic Acid/Pyridoxine Tab PO SCH (09:00)
[2022-01-23] MEDS ORDERED: guaiFENesin/Dextromethorphan 100-10 MG/5 ML Soln 10 ML Cup PO PRN (09:31)
[2022-01-23] MEDS: Acetaminophen 325 MG Tab PO PRN ×2 (14:32→22:18)
[2022-01-24] MEDS: Vancomycin 125 MG Cap PO SCH ×4 (05:28→21:02)
[2022-01-24] MEDS: Vitamin B6-pyridOXINE 50 MG Tab PO SCH (08:48)
[2022-01-24] MEDS: Cyanocobalamin (Vitamin B12) 1,000 MCG Tab PO SCH ×2 (08:49)
[2022-01-24] MEDS: Levothyroxine 25 MCG Tab PO SCH (08:50)
[2022-01-24] MEDS: Empagliflozin 10 MG Tab PO SCH (08:50)
[2022-01-24] MEDS: Lactobacillus Rhamnosus GG (Probiotic) Cap PO SCH ×2 (08:50→21:02)
[2022-01-24] MEDS: Thiamine 100 MG Tab PO SCH (08:50)
[2022-01-24] MEDS: Apixaban 5 MG Tab PO SCH ×2 (08:50→21:03)
[2022-01-24] MEDS: Folic Acid 1 MG Tab PO SCH ×2 (08:51)
[2022-01-24] MEDS: Aspirin 81 MG Tab.EC PO SCH (08:51)
[2022-01-24] MEDS: atorvaSTATin 20 MG Tab PO SCH (08:51)
[2022-01-24] MEDS: Metoprolol Succinate 25 MG Tab.ER PO SCH (11:53)
[2022-01-24] MEDS: Digoxin 125 MCG Tab PO SCH (13:05)
[2022-01-25] MEDS: Vancomycin 125 MG Cap PO SCH ×4 (05:58→21:52)
[2022-01-25] MEDS: Levothyroxine 25 MCG Tab PO SCH (07:24)
[2022-01-25] MEDS: Aspirin 81 MG Tab.EC PO SCH (09:03)
[2022-01-25] MEDS: FARXIGA 10 MG PO SCH (09:03)
[2022-01-25] MEDS: Lactobacillus Rhamnosus GG (Probiotic) Cap PO SCH ×2 (09:03→20:16)
[2022-01-25] MEDS: Apixaban 5 MG Tab PO SCH ×2 (09:03→20:16)
[2022-01-25] MEDS: atorvaSTATin 20 MG Tab PO SCH (09:03)
[2022-01-25] MEDS: Thiamine 100 MG Tab PO SCH (09:06)
[2022-01-25] MEDS: Folic Acid 1 MG Tab PO SCH (09:06)
[2022-01-25] MEDS: CYANOCOBALAMIN 2000 MCG PO SCH (09:06)
[2022-01-25] MEDS: FOLIC ACID PO SCH (09:06)
[2022-01-25] MEDS: PYRIDOXINE PO SCH (09:06)
[2022-01-25] MEDS: Cyanocobalamin (Vitamin B12) 1,000 MCG Tab PO SCH (09:07)
[2022-01-25] MEDS: Metoprolol Succinate 25 MG Tab.ER PO SCH (10:45)
[2022-01-25] MEDS: Digoxin 125 MCG Tab PO SCH (12:19)
[2022-01-26] MEDS: Vancomycin 125 MG Cap PO SCH ×2 (05:59→11:21)
[2022-01-26 08:10] VITALS: BP 110/74; PULSE 63
[2022-01-26] MEDS: Levothyroxine 25 MCG Tab PO SCH (08:10)
[2022-01-26] MEDS: Apixaban 5 MG Tab PO SCH (08:11)
[2022-01-26] MEDS: Lactobacillus Rhamnosus GG (Probiotic) Cap PO SCH (08:11)
[2022-01-26] MEDS: Aspirin 81 MG Tab.EC PO SCH (08:12)
[2022-01-26] MEDS: atorvaSTATin 20 MG Tab PO SCH (08:12)
[2022-01-26] MEDS: Folic Acid 1 MG Tab PO SCH (08:12)
[2022-01-26] MEDS: FOLIC ACID PO SCH (08:13)
[2022-01-26] MEDS: CYANOCOBALAMIN 2000 MCG PO SCH (08:13)
[2022-01-26] MEDS: FARXIGA 10 MG PO SCH (08:13)
[2022-01-26] MEDS: PYRIDOXINE PO SCH (08:13)
[2022-01-26] MEDS: Metoprolol Succinate 25 MG Tab.ER PO SCH (08:14)
[2022-01-26] MEDS: Cyanocobalamin (Vitamin B12) 1,000 MCG Tab PO SCH (08:15)
[2022-01-26] MEDS: Thiamine 100 MG Tab PO SCH (08:17)
== END 2022-01-26 11:30 | disposition home or self-care (01) | DRG 248 ==
LOC: JP.ED 15:24 → JP.MS 18:41
PROVIDERS: ADMIT Internal Medicine; ATTEND Internal Medicine
DX: A04.72 Enterocolitis due to Clostridium difficile, not specified as recurrent (principal); N17.9 Acute kidney failure, unspecified; E86.0 Dehydration; N18.31 Chronic kidney disease, stage 3a; I48.20 Chronic atrial fibrillation, unspecified; I25.5 Ischemic cardiomyopathy; E03.9 Hypothyroidism, unspecified; Z20.822 Contact with and (suspected) exposure to COVID-19; M19.90 Unspecified osteoarthritis, unspecified site; I25.10 Atherosclerotic heart disease of native coronary artery without angina pectoris; E78.00 Pure hypercholesterolemia, unspecified; I12.9 Hypertensive chronic kidney disease with stage 1 through stage 4 chronic kidney disease, or unspecified chronic kidney disease; Z79.82 Long term (current) use of aspirin; I25.2 Old myocardial infarction; Z98.49 Cataract extraction status, unspecified eye; Z95.5 Presence of coronary angioplasty implant and graft; Z79.899 Other long term (current) drug therapy
CPT/HCPCS: 0241U; 36415; 80053; 80162; 81001; 83605; 84145; 85025; 86140; 87040; 87086; 87493; 96360; 96361; 99283; 99285-25; A9270-GY; C9113; J1885; J7030; J7120

== ENCOUNTER 2022-03-18 23:02 | Emergency (ER) | payer BC ==
[2022-03-18] MEDS ORDERED: Adenosine 6 MG/2 ML SDV IVPUSH ONE (23:10)
[2022-03-18] MEDS ORDERED: Adenosine 6 MG/2 ML SDV ONE (23:10)
[2022-03-18] MEDS ORDERED: Sodium Chloride 0.9% 1,000 ML IV SCH (23:30)
[2022-03-18 23:42] LABS: ESTIMATED GFR 49 mL/min (>60)
[2022-03-18 23:46] LABS: TROPONIN I HIGH SENSITIVITY 1225.6 pg/mL (<=60.3)
[2022-03-18] MEDS ORDERED: Amiodarone 150 MG/3 ML SDV IVPUSH ONE (23:46)
[2022-03-18] MEDS ORDERED: Ondansetron 4 MG/2 ML SDV IVPUSH ONE (23:54)
[2022-03-18] MEDS ORDERED: Aspirin 81 MG Tab.Chew PO ONE (23:54)
[2022-03-19] MEDS ORDERED: Sodium Chloride 0.9% 1,000 ML IV SCH (00:24)
[2022-03-19] MEDS ORDERED: Heparin Sodium 5,000 Units/ML Vial IVPUSH ONE (00:36)
[2022-03-19] MEDS ORDERED: Heparin Sodium/D5W 25,000 UNITS/500 ML BAG IV SCH (00:45)
[2022-03-23 05:42] VITALS: BP 79/55; PULSE 62
== END 2022-03-19 01:38 ==
LOC: JP.ED 23:02
DX: I21.4 Non-ST elevation (NSTEMI) myocardial infarction (principal); I47.2 Ventricular tachycardia; I25.10 Atherosclerotic heart disease of native coronary artery without angina pectoris; E78.00 Pure hypercholesterolemia, unspecified; E03.9 Hypothyroidism, unspecified; Z79.899 Other long term (current) drug therapy; Z79.82 Long term (current) use of aspirin; Z79.01 Long term (current) use of anticoagulants; Z95.0 Presence of cardiac pacemaker; Z20.822 Contact with and (suspected) exposure to COVID-19
CPT/HCPCS: 36415; 71045; 80053; 83605; 84484; 85025; 85610; 85730; 86140; 87635; 93005; 96361; 96365; 96367; 96375; 96376; 99285; A9270; J0153; J0282; J1644; J2405; J7030; J7060; U0002

== ENCOUNTER 2023-07-22 16:33 | Emergency (ER) | payer BC, OTHER ==
[2023-07-22] MEDS ORDERED: Succinylcholine 200 MG/10 ML MDV ONE (16:39)
[2023-07-22] MEDS ORDERED: Succinylcholine 200 MG/10 ML MDV IV ONE (16:42)
[2023-07-22] MEDS ORDERED: Etomidate 2 MG/ML 10 ML SDV IVPUSH ONE (16:49)
[2023-07-22] MEDS ORDERED: Sodium Chloride 0.9% 1,000 ML IV ONE ×3 (16:49→17:18)
[2023-07-22 16:52] LABS: BASOPHILS ABSOLUTE AUTO 0.05 K/uL (0.00-0.10); BASOPHILS PERCENT AUTO 0.4 % (0.1-1.3); EOSINOPHILS ABSOLUTE AUTO 0.15 K/uL (0.00-0.40); EOSINOPHILS PERCENT AUTO 1.3 % (0.0-5.4); HEMATOCRIT 32.8 % (38.4-49.7); HEMOGLOBIN 10.1 g/dL (12.9-16.9); IMMATURE GRAN ABSOLUTE AUTO 0.11 K/uL (0.00-0.23); LYMPHOCYTES ABSOLUTE AUTO 5.05 K/uL (0.8-3.3); LYMPHOCYTES PERCENT AUTO 45.3 % (11.4-47.7); MEAN CORPUSCULAR HEMOGLOBIN 32.4 pg (31.6-35.5); MEAN CORPUSCULAR HGB CONC 30.8 g/dL (31.6-35.5); MEAN CORPUSCULAR VOLUME 105.1 fL (81.4-99.0); MONOCYTES PERCENT AUTO 3.6 % (3.3-12.6); NEUTROPHILS PERCENT AUTO 48.4 % (40.0-78.1); PLATELET COUNT,PLT 196 K/uL (130-375); RED BLOOD CELL COUNT 3.12 M/uL (4.14-5.76); WHITE BLOOD CELL COUNT,WBC 11.2 K/uL (3.2-11.0)
[2023-07-22 16:53] LABS: BASE EXCESS ARTERIAL -4.1 mm/L; BICARBONATE,ARTERIAL 23.8 mmol/L (22.0-26.0); CARBOXYHEMOGLOBIN 3.1 % (0.0-1.6); METHEMOGLOBIN 1.1 %; O2 SATURATION ARTERIAL 87.5 % (95.0-98.0); OXYHEMOGLOBIN 83.8 %; PCO2 ARTERIAL 61.2 mmHg (35.0-42.0); PO2 ARTERIAL 72.6 mmHg (75.0-100.0); TOTAL HEMOGLOBIN 10.5 g/dL (13.5-18.0)
[2023-07-22 17:08] LABS: A/G RATIO 0.9 (1.2-2.2); ALANINE AMINOTRANSFERASE,ALT 108 U/L (12-78); ALBUMIN 2.7 g/dL (3.4-5.0); ALKALINE PHOSPHATASE 52 U/L (46-116); ASPARTATE AMNIOTRANSFERASE,AST 172 U/L (15-37); BILIRUBIN TOTAL 0.4 mg/dL (0.2-1.0); BLOOD UREA NITROGEN,BUN 39 mg/dL (7-18); CALCIUM 7.2 mg/dL (8.5-10.1); CARBON DIOXIDE,CO2 25 mmol/L (21-32); CHLORIDE,CL 120 mmol/L (100-108); CREATININE 2.5 mg/dL (0.8-1.3); ESTIMATED GFR 28 mL/min (>60); GLUCOSE RANDOM 134 mg/dL (74-106); POTASSIUM,K 4.1 mmol/L (3.6-5.2); PROTEIN TOTAL,TP 5.7 g/dL (6.4-8.2); SODIUM,NA 155 mmol/L (140-148)
[2023-07-22 17:18] LABS: ANION GAP 14.1 mmol/L (5.0-14.0)
[2023-07-22] MEDS ORDERED: ceFAZolin 1 GM in Sodium Chloride 0.9% 50 ML IV ONE (17:32)
[2023-07-22 18:12] VITALS: BP 139/119; PULSE 60
[2023-07-22] MEDS ORDERED: Tranexamic Acid 1,000 MG/10 ML Vial IVPUSH ONE (19:26)
[2023-07-22] MEDS ORDERED: propofoL 100 ML IV SCH (19:30)
== END 2023-07-22 17:42 ==
LOC: JP.ED 16:33 → UNMERGE 16:33 → EDBD 16:33 → MERGE 16:33 → JP.ED 17:42 → JP.MS 21:52 → UNDODISIN 21:52 → UNDOADMIN 21:52
DX: S09.90XA Unspecified injury of head, initial encounter (principal); T79.4XXA Traumatic shock, initial encounter; N17.9 Acute kidney failure, unspecified; R74.01 Elevation of levels of liver transaminase levels; J93.9 Pneumothorax, unspecified; J96.02 Acute respiratory failure with hypercapnia; E83.51 Hypocalcemia; E87.1 Hypo-osmolality and hyponatremia; Z95.0 Presence of cardiac pacemaker; V49.40XA Driver injured in collision with unspecified motor vehicles in traffic accident, initial encounter; Y92.410 Unspecified street and highway as the place of occurrence of the external cause
CPT/HCPCS: 31500; 32551; 36415; 36430; 43752; 71045; 71045-26; 72170; 72170-26; 74018; 74018-26; 80053; 82803; 85025; 86850; 86900; 86901; 86920; 86922; 96361; 96374; 96375; 99291-25; G0390; J0330; J0690; J2704; J3490; J7030; P9016